=== PATIENT | female | born 1925 | race Caucasian/White ===

== ENCOUNTER 2017-03-01 18:53 | Observation (INO) | payer OTHER, BC ==
--- NOTE | 2017-03-01 19:12 | DR.GENAD ---
HPI - PCP Primary Care Physician: EDDI - HPI Comment HPI Comment: DEMENTIAL TOTAL CARE PATIENT IN ED VIA EMS WITH WEAKNESS AND DIARRHEA. NO FEVER. ABDOMINAL CRAMPS ON AND OFF. SHE WAS GETTING WORSE. - Complaint/Symptoms Chief Complaint Doctors Comments: DIARRHEA, ABDOMINAL PAIN SINCE LUNCH/ SEVERAL BOWEL MOVEMENTS. Chief Complaint:: FAMILY STATES PT. STARTED HAVING DIARRHEA AROUND LUNCH TODAY AND IT HAS BEEN CONTINUOUS SINCE ONSET. PT. DENIES PAIN. - Nurses notes reviewed Nurses Notes Review: Yes - Source History Provided: Patient, Family Member, EMS - Mode of Arrival Mode of Arrival: EMS - Timing Onset of Chief Complaint: 03/01/17 Came on: Suddenly - Duration Duration: Constant Duration: Days - Severity Severity: Moderate PMH - PMH Past Medical History: Yes Past Medical History: CHF, Dementia, Hypertension Past Surgical History: Yes Surgical History: Cholecystectomy - Family History History of Family Medical Conditions: Yes Family Medical History: Diabetes Mellitus, [place] - Social History Does patient currently use any type of tobacco product: No Have you used tobacco products in the last 12 months: No Type of Tobacco Use: None Does any household member use tobacco: No Alcohol Use: None Do you use any recreational Drugs:: No Lives With: Sitter Lives Where: Home - infectious screening In the last 2 months have you had wt loss of >10#?: NO Have you had fever, night sweats or hemotysis?: No Have you traveled outside the country in the last 6 months?: No Isolation: Standard ROS - Review of Systems Constitutional: Weakness, Fatigue. negative: Chills, Diaphoresis, Fever, Loss of Appetite Eyes: No Symptoms Reported. negative: Eye Pain, Discharge ENTM: No Symptoms Reported. negative: Ear Discharge, Nose Discharge, Nose Congestion, Throat Pain Respiratoy: Non-Productive Cough, Short of Breath. negative: Productive Cough, Wheezing, Hemoptysis Cardiovascular: negative: Chest Pain, Palpitations, Syncope Gastrointestinal/Abdominal: Abdominal Pain, Diarrhea, Nausea Genitourinary: No Symptoms Reported. negative: Dysuria, Hematuria Neurological: Headache, Weakness, Dizziness, Problems Walking, Other (BED BOUND PATIENT.) Musculoskeletal: Muscle Pain PE - Vital Signs Vitals: Temperature 97.8 F Pulse Rate 86 Respiratory Rate 17 Blood Pressure [Left Arm] 120/64 Blood Pressure [Right Arm] 132/74 Blood Pressure 126/71 O2 Sat by Pulse Oximetry 96 - General Limitations: No Limitations General Appearance: Alert - Head Head Exam: Normal Inspection - Eyes Eye exam: Normal Appearance - ENT ENT Exam: Normal External Ear Exam External Ear Exam: Normal External Inspection TM/Canal Exam: Bilateral Normal Mouth Exam: Lip Swelling - Neck Neck Exam: Normal Inspection - Chest Chest Inspection: Normal Inspection MDM - Additional Information Additional Information Obtained From: Family - Differential Diagnosis Differential Diagnosis: ABDOMINAL PAIN, BOWEL OBSTRUCTION, DIVERTICULITIS, DEHYDRATION Course - Treatment Treatment: SEE ORDERS. - Consultation Consultation Comments: DISCUSS PATIENT WITH DR. FARIAS. WILL ADMIT PATIIENT. - Education/Counseling Education/Counseling: Patient, Family, Education Educated On: Diagnosis ROR - Labs Reviewed Laboratory Results Reviewed?: Yes Result Diagrams: 03/02/17 05:12 03/02/17 05:12 Laboratory: WBC 9.3 X10^3/uL (3.6-10.0) 03/01/17 19:50 RBC 4.34 X10^6/uL (3.5-5.4) 03/01/17 19:50 Hgb 13.3 g/dL (12.0-16.0) 03/01/17 19:50 Hct 40.4 % (36.0-47.0) 03/01/17 19:50 MCV 93.0 fL (80.0-100.0) 03/01/17 19:50 MCH 30.6 pg (27.0-34.0) 03/01/17 19:50 MCHC 32.9 g/dL (33.0-35.0) L 03/01/17 19:50 RDW 14.2 % (11.6-16.5) 03/01/17 19:50 Plt Count 207 X10^3/uL (150.0-450.0) 03/01/17 19:50 MPV 8.7 fL (7.4-11.0) 03/01/17 19:50 Neut % 68.4 % (42.0-75.0) 03/01/17 19:50 Lymph % 24.0 % (21.0-51.0) 03/01/17 19:50 Gregg % 7.0 % (0.0-13.0) 03/01/17 19:50 Eos % 0.0 % (0.9-2.9) L 03/01/17 19:50 Baso % 0.6 % (0.2-1.0) 03/01/17 19:50 Neut # 6.4 x10^3/uL (2.2-4.8) H 03/01/17 19:50 Lymph # 2.2 X10^3/uL (1.3-2.9) 03/01/17 19:50 Gregg # 0.7 x10^3/uL (0.3-0.8) 03/01/17 19:50 Eos # 0.0 x10^3/uL (0.0-0.2) 03/01/17 19:50 Baso # 0.1 X10^3/uL (0.0-0.1) 03/01/17 19:50 Absolute Nucleated RBC 0.0 /100WBC 03/01/17 19:50 Sodium 144 mmol/L (136-145) 03/01/17 19:50 Corrected Sodium TNP 03/01/17 19:50 Potassium 3.6 mmol/L (3.5-5.1) 03/01/17 19:50 Chloride 109 mmol/L (98-107) H 03/01/17 19:50 Carbon Dioxide 26.4 mmol/L (21-32) 03/01/17 19:50 BUN 25 mg/dL (7-18) H 03/01/17 19:50 Creatinine 1.27 mg/dL (0.55-1.02) H 03/01/17 19:50 Est GFR (MDRD) Af Amer 51 (>60) L 03/01/17 19:50 Est GFR (MDRD) Non-Af 42 (>60) L 03/01/17 19:50 Glucose 99 mg/dL (65-99) 03/01/17 19:50 Calcium 9.0 mg/dL (8.5-10.1) 03/01/17 19:50 Corrected Calcium 10.0 mg/dL (8.5-10.1) 03/01/17 19:50 Total Bilirubin 0.20 mg/dL (0.2-1.0) 03/01/17 19:50 AST 15 Units/L (15-37) 03/01/17 19:50 ALT 16 Units/L (12-78) 03/01/17 19:50 Alkaline Phosphatase 73 Units/L (46-116) 03/01/17 19:50 Creatine Kinase 33 Units/L (26-192) 03/01/17 19:50 CK-MB (CK-2) 1.1 ng/mL (0-4.0) 03/01/17 19:50 CK/CKMB % Calc 3.3 % (<4) 03/01/17 19:50 Troponin I < 0.02 ng/mL (0-1.5) 03/01/17 19:50 Total Protein 6.8 g/dL (6.4-8.2) 03/01/17 19:50 Albumin 2.8 g/dL (3.4-5.0) L 03/01/17 19:50 Globulin 4.0 g/dL (2.5-4.5) 03/01/17 19:50 Albumin/Globulin Ratio 0.7 Ratio (1.1-2.1) L 03/01/17 19:50 - XRAY XRAY Interpreted by: Radiologist XRAY Findings: REPORT DISCUSS WITH PATIENT AND FAMILY - Diagnosis Discharge Problem: Colitis, Dehydration Abdominal pain Qualifiers: Abdominal location: generalized Qualified Code(s): R10.84 - Generalized abdominal pain - Discharge Plan Disposition: ADMITTED INPATIENT Condition: Stable - Follow ups/Referrals - Instructions
[2017-03-01] MEDS ORDERED: NS 1000 ML 1,000 ML IV ONE (19:45)
[2017-03-01 20:03] LABS: BASOPHILS # (AUTO) 0.1 X10^3/uL (0.0-0.1); BASOPHILS % (AUTO) 0.6 % (0.2-1.0); HEMATOCRIT 40.4 % (36.0-47.0); HEMOGLOBIN 13.3 g/dL (12.0-16.0); LYMPHOCYTES # (AUTO) 2.2 X10^3/uL (1.3-2.9); MEAN CORPUSCULAR HEMOGLOBIN 30.6 pg (27.0-34.0); MEAN CORPUSCULAR HGB CONC 32.9 g/dL (33.0-35.0); MEAN PLATELET VOLUME 8.7 fL (7.4-11.0); MONOCYTES # (AUTO) 0.7 x10^3/uL (0.3-0.8); NEUTROPHILS # (AUTO) 6.4 x10^3/uL (2.2-4.8); NEUTROPHILS % (AUTO) 68.4 % (42.0-75.0); PLATELET COUNT 207 X10^3/uL (150.0-450.0); RED BLOOD COUNT 4.34 X10^6/uL (3.5-5.4); RED CELL DISTRIBUTION WIDTH 14.2 % (11.6-16.5); WHITE BLOOD COUNT 9.3 X10^3/uL (3.6-10.0)
--- NOTE | 2017-03-01 20:15 | CT ---
CT abdomen and pelvis without contrast Indication: Diarrhea Comparison: 12/15/2015 Technique: CT images of the abdomen and pelvis were obtained without contrast. Automatic exposure co ntrol was utilized. Findings: Generalized osteopenia. Multiple chronic compression deformities of the lumbar spine. No a ggressive osseous lesion. There are mild interstitial changes of the lung bases, without acute consolidation or significant pl eural effusion. The gallbladder is surgically absent. Within noncontrast limitations, the liver, spleen, stomach, du odenum, pancreas, adrenals, and kidneys are unremarkable. There is colonic diverticulosis without ev idence for acute diverticulitis. No focal bowel thickening or dilatation of the lower GI tract ident ified. There is liquid stool within the rectum, consistent with diarrheal illness. The uterus is abs ent. The urinary bladder is unremarkable. No free fluid or adenopathy identified. There is aortoilia c atherosclerosis, with stable infrarenal aortic ectasia. Impression: No acute process identified. Diverticulosis without acute diverticulitis. Reported By:
[2017-03-01 20:16] LABS: BLOOD UREA NITROGEN 25 mg/dL (7-18); CARBON DIOXIDE 26.4 mmol/L (21-32); CHLORIDE 109 mmol/L (98-107); CREATININE 1.27 mg/dL (0.55-1.02); GLUCOSE 99 mg/dL (65-99); SODIUM 144 mmol/L (136-145); TROPONIN I < 0.02 ng/mL (0-1.5); eGFR BLACK RACES 51 (>60); eGFR NON BLACK RACES 42 (>60)
[2017-03-01 20:21] LABS: ALANINE AMINOTRANSFERASE 16 Units/L (12-78); ALBUMIN 2.8 g/dL (3.4-5.0); ALKALINE PHOSPHATASE 73 Units/L (46-116); ASPARTATE AMINO TRANSFERASE 15 Units/L (15-37); CKMB % 3.3 % (<4); CREATINE KINASE 33 Units/L (26-192); CREATINE KINASE MB 1.1 ng/mL (0-4.0); TOTAL PROTEIN 6.8 g/dL (6.4-8.2)
[2017-03-01] MEDS ORDERED: NS 1000 ML 1,000 ML ONE (20:23)
--- NOTE | 2017-03-01 21:05 | RAD ---
Chest, one view Indication: Chest pain. Comparison: 10/06/2016 Findings: The cardiac silhouette is unremarkable. There are mild interstitial changes of the lungs, unchanged. No focal infiltrates or large pleural effusion. The bony thorax is unremarkable. Impression: No acute cardiopulmonary disease. Reported By:
[2017-03-02] MEDS ORDERED: TYLENOL 325 MG TAB PO PRN (00:12)
[2017-03-02] MEDS ORDERED: PEPCID 20 MG IV PREMIX* 20 MG/50 ML BAG IV PRN (00:12)
[2017-03-02] MEDS ORDERED: MORPHINE SULFATE INJ 2 MG IVP PRN (00:12)
[2017-03-02] MEDS ORDERED: ZOFRAN INJ 4 MG VIAL IVP PRN (00:12)
[2017-03-02] MEDS: NS 1000 ML 1,000 ML IV SCH ×3 (02:02→14:17)
[2017-03-02 02:17] VITALS: BMI 32.1
[2017-03-02 05:48] LABS: BASOPHILS # (AUTO) 0.1 X10^3/uL (0.0-0.1); BASOPHILS % (AUTO) 0.6 % (0.2-1.0); HEMATOCRIT 38.7 % (36.0-47.0); HEMOGLOBIN 12.7 g/dL (12.0-16.0); LYMPHOCYTES # (AUTO) 2.4 X10^3/uL (1.3-2.9); LYMPHOCYTES % (AUTO) 26.4 % (21.0-51.0); MEAN CORPUSCULAR HEMOGLOBIN 30.8 pg (27.0-34.0); MEAN CORPUSCULAR HGB CONC 32.9 g/dL (33.0-35.0); MEAN CORPUSCULAR VOLUME 93.6 fL (80.0-100.0); MONOCYTES # (AUTO) 0.8 x10^3/uL (0.3-0.8); MONOCYTES % (AUTO) 9.1 % (0.0-13.0); NEUTROPHILS # (AUTO) 5.7 x10^3/uL (2.2-4.8); NEUTROPHILS % (AUTO) 63.9 % (42.0-75.0); PLATELET COUNT 168 X10^3/uL (150.0-450.0); RED BLOOD COUNT 4.13 X10^6/uL (3.5-5.4); RED CELL DISTRIBUTION WIDTH 14.1 % (11.6-16.5)
[2017-03-02 05:56] LABS: ALANINE AMINOTRANSFERASE 14 Units/L (12-78); ALBUMIN 2.6 g/dL (3.4-5.0); ALKALINE PHOSPHATASE 65 Units/L (46-116); ASPARTATE AMINO TRANSFERASE 14 Units/L (15-37); BLOOD UREA NITROGEN 22 mg/dL (7-18); CALCIUM 9.1 mg/dL (8.5-10.1); CARBON DIOXIDE 23.3 mmol/L (21-32); CHLORIDE 112 mmol/L (98-107); COR CA(FOR HYPOALB) 10.2 mg/dL (8.5-10.1); CREATININE 1.02 mg/dL (0.55-1.02); GLUCOSE 90 mg/dL (65-99); SODIUM 145 mmol/L (136-145); TOTAL PROTEIN 6.3 g/dL (6.4-8.2); eGFR BLACK RACES > 60 (>60); eGFR NON BLACK RACES 54 (>60)
[2017-03-02 09:05] LABS: CRYPTOSPORIDIUM PARVUM ANTIGEN NEGATIVE (NEGATIVE); GIARDIA LAMBLIA ANTIGEN NEGATIVE (NEGATIVE)
[2017-03-02] MEDS ORDERED: NS 500 ML IV 500 ML IV ONE (09:55)
[2017-03-02] MEDS ORDERED: ASPIRIN 81 MG CHEWTAB PO SCH (10:00)
[2017-03-02] MEDS ORDERED: LASIX PO SCH (10:00)
[2017-03-02] MEDS ORDERED: MICRO K EXTEN CAP 10 MEQ PO SCH (10:00)
[2017-03-02] MEDS ORDERED: TENORMIN PO SCH (10:00)
[2017-03-02] MEDS ORDERED: NS 1000 ML 1,000 ML IV SCH (10:00)
[2017-03-02] MEDS ORDERED: ALTACE CAP 10 MG PO SCH (10:00)
[2017-03-02] MEDS ORDERED: PATIENT'S HOME MEDICATION (Sertraline Hcl [Zoloft 25 Mg] 25 MG) PO SCH (10:00)
[2017-03-02] MEDS ORDERED: ALLEGRA PO SCH (10:00)
[2017-03-02] MEDS ORDERED: ALLEGRA ONE (10:39)
[2017-03-02] MEDS ORDERED: ASTELIN NASAL SPRAY ENOSTRIL ONE (10:41)
[2017-03-02] MEDS: ASTELIN NASAL SPRAY ENOSTRIL SCH ×2 (10:43→14:17)
[2017-03-02 12:19] VITALS: BP 146/63
[2017-03-02] MEDS ORDERED: LIPITOR TAB 40 MG PO SCH (21:00)
[2017-03-02] MEDS ORDERED: ZyPREXA TAB 5 MG PO SCH (21:00)
[2017-03-02] MEDS ORDERED: XALATAN EACHEYE SCH (21:00)
[2017-03-03] MEDS ORDERED: ZOLOFT PO SCH (09:00)
== END 2017-03-02 15:45 | disposition home or self-care (01) ==
LOC: ER 18:55 → MED/SURG 23:43
PROVIDERS: ADMIT Internal Medicine; ATTEND Obstetrics & Gynecology Obstetrics
DX: A08.39 Other viral enteritis (principal); R53.1 Weakness; R19.7 Diarrhea, unspecified; I10 Essential (primary) hypertension; E86.0 Dehydration; R10.84 Generalized abdominal pain
CPT/HCPCS: 36415; 71010; 74176; 80053; 82550; 82553; 84484; 85025; 87045; 87205; 87328; 87329; 87336; 87427; 87493; 87899; 93005; 93010; 96365; 99284; A4222; G0378